=== PATIENT | female | born 1960 | race Two or more races ===

== ENCOUNTER 2018-05-29 15:34 | Emergency (ER) | payer MEDICAID ==
[~2018-05-29] VITALS: Ht 162.6 cm; Wt 108.9 kg
[2018-05-29] MEDS ORDERED: ALBUTEROL SULF 2.5 MG/0.5ML(0.5%) NEB SOLN HHN ONE (16:00)
[2018-05-29] MEDS ORDERED: IPRATROPIUM BROM 0.5 MG/2.5ML INH SOL HHN ONE (16:00)
[2018-05-29] MEDS ORDERED: methylPREDNISolone SOD SUCC 125 MG/2 ML VL IV ONE (16:00)
[2018-05-29 16:44] LABS: Basophils # (auto) 0 uL; Basophils % (auto) 0.8 % (0.0-2.0); Eosinophils # (auto) 0 uL; Eosinophils % (auto) 0.5 % (0.0-7.0); Hematocrit 43.6 % (36.0-46.0); Hemoglobin 14.7 g/dL (12.2-16.2); Lymphocytes # (auto) 0.2 uL; Lymphocytes % (auto) 5.1 % (10.0-50.0); Mean Corpuscular Hemoglobin 30.1 pg (28.0-32.0); Mean Corpuscular Hgb Conc. 33.8 g/dL (32.0-36.0); Mean Corpuscular Volume 89.1 fL (80.0-100.0); Monocytes # (auto) 0.6 uL; Monocytes % (auto) 13.8 % (0.0-12.0); Neutrophils # (auto) 3.5 uL; Neutrophils % (auto) 79.8 % (37.0-80.0); Platelet Count (auto) 147 10^3/uL (140-450); Red Blood Cells 4.89 10^6/uL (4.0-5.20); Red Cell Distribution Width 13.5 % (11.8-14.3); White Blood Cell 4.4 10^3/uL (4.4-10.8)
[2018-05-29 16:52] LABS: Alanine Aminotransferase 43 U/L (13-56); Albumin 3.9 g/dL (3.4-5.0); Anion Gap 7 (5-15); Aspartate Aminotransferase 32 U/L (15-37); BUN/Creatinine Ratio 14.1; Blood Urea Nitrogen 9 mg/dL (7-18); Carbon Dioxide 24 mmol/L (21-32); Chloride 103 mmol/L (98-107); GFR African American > 60 mL/min; GFR Non-African American > 60 mL/min; Glucose 190 mg/dL (74-106); Potassium 3.8 mmol/L (3.5-5.1); Sodium 134 mmol/L (136-145)
[2018-05-29 16:55] LABS: Alkaline Phosphatase 135 U/L (45-117); Bilirubin, Total 0.9 mg/dL (0.2-1.0); Total Protein 7.8 g/dL (6.4-8.2)
[2018-05-29 22:48] VITALS: BP 149/69
== END 2018-05-29 23:19 | disposition short-term general hospital (02) ==
LOC: EDBD 15:34 → ER 15:38
DX: R06.03 Acute respiratory distress (principal); R50.9 Fever, unspecified; R42 Dizziness and giddiness; R51 Headache; J45.909 Unspecified asthma, uncomplicated
CPT/HCPCS: 36415; 71046; 80053; 83605; 83735; 83880; 84484; 85025; 87040; 93005; 94640; 94761; 96374; 99285; J2930; J7611; J7644

== ENCOUNTER 2024-02-14 18:27 | Emergency (ER) | payer OTHER, MEDICAID ==
[~2024-02-14] VITALS: Ht 165.1 cm; Wt 105.0 kg
[2024-02-14 21:07] LABS: Basophils # (auto) 0 10 ^3/uL (0-0.2); Basophils % (auto) 0.2 % (0.0-2.0); Eosinophils # (auto) 0 10 ^3/uL (0-0.8); Hemoglobin 14.5 g/dL (12.2-16.2); Lymphocytes # (auto) 0.5 10 ^3/uL (0.4-5.4); Lymphocytes % (auto) 3.4 % (10.0-50.0); Mean Corpuscular Hemoglobin 30.5 pg (28.0-32.0); Mean Corpuscular Hgb Conc. 32.9 g/dL (32.0-36.0); Mean Corpuscular Volume 92.5 fL (80.0-100.0); Monocytes # (auto) 0.9 10 ^3/uL (0-1.3); Monocytes % (auto) 6.2 % (0.0-12.0); Neutrophils # (auto) 12.9 10 ^3/uL (1.6-8.6); Neutrophils % (auto) 90.2 % (37.0-80.0); Platelet Count (auto) 198 10^3/uL (140-450); Red Blood Cells 4.75 10^6/uL (4.0-5.20); Red Cell Distribution Width 14.7 % (11.8-14.3); White Blood Cell 14.4 10^3/uL (4.4-10.8)
[2024-02-14 21:28] LABS: Alanine Aminotransferase 34 U/L (7-40); Albumin 4.4 g/dL (3.2-4.8); Alkaline Phosphatase 125 U/L (46-116); Anion Gap 8 (5-15); Aspartate Aminotransferase 26 U/L (13-40); BUN/Creatinine Ratio 7.8 (10.0-20.0); Blood Urea Nitrogen 9 mg/dL (9-23); Calcium 10.9 mg/dL (8.7-10.4); Carbon Dioxide 25 mmol/L (20-31); Chloride 101 mmol/L (98-107); Glucose 266 mg/dL (74-106); Lipase 30 U/L (12-53); Magnesium 1.8 mg/dL (1.6-2.6); Potassium 3.3 mmol/L (3.5-5.1); Sodium 134 mmol/L (136-145)
[2024-02-14 21:29] LABS: Bilirubin, Total 1.3 mg/dL (0.2-1.0); Total Protein 7.1 g/dL (5.7-8.2)
[2024-02-14] MEDS: SODIUM CHLORIDE 0.9% 1,000 ML IV ONE (22:52)
[2024-02-14] MEDS: KETOROLAC TROMETH 60MG/2ML VIAL IM ONE (22:53)
[2024-02-14] MEDS: cefTRIAXone W LIDOCAINE 1 GM IM IM ONE (23:45)
[2024-02-15 00:09] LABS: Urine Bacteria FEW /hpf (None Seen); Urine Blood 1+ /uL (Negative); Urine Clarity Ex.Turbid (Clear); Urine Color Yellow (Yellow); Urine Protein, UAD 2+ (Negative); Urine Specific Gravity 1.008 (1.001-1.035); Urine Urobilinogen Normal (Negative); Urine WBC 2072 /hpf (0 - 5); Urine WBC Clumps PRESENT /hpf (None Seen)
[2024-02-15] MEDS: POTASSIUM EFFERVESENT TAB 25 MEQ PO ONE (00:13)
[2024-02-15] MEDS: SODIUM CHLORIDE 0.9% 1,000 ML IV ONE (00:14)
[2024-02-15] MEDS: cefTRIAXone W LIDOCAINE 1 GM IM IM ONE (02:00)
[2024-02-15] MEDS ORDERED: CEPH250C PO (02:57)
[2024-02-15] MEDS ORDERED: AZITTAB2 PO (02:57)
[2024-02-15] MEDS: cefTRIAXone SOD 1,000 MG VL ONE (03:30)
[2024-02-15 04:17] VITALS: BP 88/64; PULSE 62; RESP 18; TEMP 98.3; O2SAT 95
[2024-02-16] MEDS ORDERED: CICL160A2 IN (14:03)
[2024-02-16] MEDS ORDERED: BUSP10TA31 PO (14:03)
[2024-02-16] MEDS ORDERED: VENL75CA78 PO (14:03)
[2024-02-16] MEDS ORDERED: HYDR-4072 PO (14:03)
[2024-02-16] MEDS ORDERED: LISI-283 PO (14:03)
[2024-02-16] MEDS ORDERED: AMLO1TAB23 PO (14:03)
[2024-02-16] MEDS ORDERED: INSLISPI SC ×2 (14:03)
[2024-02-16] MEDS ORDERED: ATOR20TA PO (14:03)
[2024-02-16] MEDS ORDERED: SEMA1INJ2 SC (14:03)
[2024-02-16] MEDS ORDERED: GABA300T4 PO (14:03)
[2024-02-16] MEDS ORDERED: TOPI100T68 PO (14:03)
[2024-02-16] MEDS ORDERED: AZEL0.1S (14:03)
[2024-02-16] MEDS ORDERED: POTA-36 PO (14:03)
== END 2024-02-15 04:18 | disposition home or self-care (01) ==
LOC: ER 18:27 → EDBD 18:27 → ER 02-15 04:18
DX: J40 Bronchitis, not specified as acute or chronic (principal); N39.0 Urinary tract infection, site not specified; B34.9 Viral infection, unspecified; E11.9 Type 2 diabetes mellitus without complications; I10 Essential (primary) hypertension; Z88.8 Allergy status to other drugs, medicaments and biological substances
CPT/HCPCS: 36415; 71046; 80053; 81001; 83690; 83735; 84484; 85025; 93005; 96360; 96361; 96372; 99285; J0696; J1885; J7030

== ENCOUNTER 2024-02-15 09:18 | Inpatient (IN) | payer OTHER, MEDICAID ==
[~2024-02-15] VITALS: Ht 172.7 cm; Wt 122.7 kg
[~2024-02-15 09:18] MED LIST: AZITTAB2 PO; CEPH250C PO
[2024-02-15] MEDS: ACETAMINOPHEN 650 MG RECT SUPP PR ONE (10:39)
[2024-02-15 10:56] VITALS: PULSE 134; RESP 24; O2SAT 92
[2024-02-15 11:57] LABS: Basophils # (auto) 0 10 ^3/uL (0-0.2); Eosinophils # (auto) 0 10 ^3/uL (0-0.8); Eosinophils % (auto) 0.2 % (0.0-7.0); Hematocrit 38.2 % (36.0-46.0); Hemoglobin 12.9 g/dL (12.2-16.2); Lymphocytes # (auto) 0.2 10 ^3/uL (0.4-5.4); Lymphocytes % (auto) 5.7 % (10.0-50.0); Mean Corpuscular Hemoglobin 31.6 pg (28.0-32.0); Mean Corpuscular Hgb Conc. 33.9 g/dL (32.0-36.0); Mean Corpuscular Volume 93.2 fL (80.0-100.0); Monocytes # (auto) 0 10 ^3/uL (0-1.3); Monocytes % (auto) 1.3 % (0.0-12.0); Neutrophils # (auto) 3.3 10 ^3/uL (1.6-8.6); Neutrophils % (auto) 92.8 % (37.0-80.0); Nucleated Red Blood Cells % 0.1 %; Platelet Count (auto) 113 10^3/uL (140-450); Red Blood Cells 4.09 10^6/uL (4.0-5.20); Red Cell Distribution Width 14.6 % (11.8-14.3); White Blood Cell 3.6 10^3/uL (4.4-10.8)
[2024-02-15 12:22] LABS: Alanine Aminotransferase 33 U/L (7-40); Albumin 3.6 g/dL (3.2-4.8); Alkaline Phosphatase 153 U/L (46-116); Anion Gap 6 (5-15); Aspartate Aminotransferase 35 U/L (13-40); BUN/Creatinine Ratio 10.2 (10.0-20.0); Bilirubin, Total 0.8 mg/dL (0.2-1.0); Blood Urea Nitrogen 12 mg/dL (9-23); Carbon Dioxide 25 mmol/L (20-31); Chloride 102 mmol/L (98-107); Glucose 183 mg/dL (74-106); Potassium 3.5 mmol/L (3.5-5.1); Sodium 133 mmol/L (136-145); Total Protein 5.9 g/dL (5.7-8.2)
[2024-02-15 12:41] LABS: Lactic Acid w/Reflex 2.7 mmol/L (0.4-2.0)
[2024-02-15] MEDS ORDERED: ACETAMINOPHEN IV 1000 MG/100ML (10MG/ML) IV PRN (13:00)
[2024-02-15] MEDS: cefTRIAXone 1GM/50ML D5W 50 ML IV ONE (13:17)
[2024-02-15] MEDS: AZITHROMYCIN 250 MG TAB PO ONE (13:55)
[2024-02-15] MEDS: methylPREDNISolone SOD SUCC 125 MG/2 ML VL IV ONE (13:58)
[2024-02-15 14:01] LABS: COVID19 ANTIGEN SOFIA FIA NEGATIVE (NEGATIVE); Rapid Influenza A Negative (Negative); Rapid Influenza B Negative (Negative)
[2024-02-15] MEDS: ACETAMINOPHEN 325 MG TAB PO ONE (14:22)
[2024-02-15] MEDS: SODIUM CHLORIDE 0.9% 1,000 ML IV ONE ×3 (14:45→16:37)
[2024-02-15] MEDS ORDERED: NITROGLYCERIN 0.4 MG SL TAB SL PRN (17:30)
[2024-02-15] MEDS: ALBUTEROL SULF 2.5 MG/0.5ML(0.5%) NEB SOLN NEB ONE (17:30)
[2024-02-15] MEDS: NOREPINEPHRINE 8 MG/250ML KIT 250 ML IV ONE (17:42)
[2024-02-15] MEDS: NOREPINEPHRINE 8 MG/250ML KIT 250 ML IV SCH (17:50)
[2024-02-15 18:10] VITALS: PULSE 74; RESP 20; O2SAT 94
[2024-02-15 18:11] LABS: Base Excess -3.1 mmol/L (-2.0-3.0)
[2024-02-15] MEDS: ALBUTEROL SULF 2.5 MG/0.5ML(0.5%) NEB SOLN NEB PRN (18:18)
[2024-02-15] MEDS: IPRATROPIUM BROM 0.5 MG/2.5ML INH SOL NEB ONE (18:18)
[2024-02-15 18:21] VITALS: PULSE 71; RESP 20; O2SAT 94; O2SAT 98
[2024-02-15 18:24] VITALS: BP 89/48; PULSE 74; TEMP 103.4; O2SAT 94
[2024-02-15] MEDS: levoFLOXacin 500MG 100 ML IV ONE (18:43)
[2024-02-15] MEDS: SODIUM CHLORIDE 0.9% 1,000 ML IV SCH (18:43)
[2024-02-15] MEDS: ENOXAPARIN SOD 40 MG/0.4 ML SYRINGE SC SCH (18:48)
[2024-02-15] MEDS: PANTOPRAZOLE 40 MG/10 ML VIAL INJ IV ONE (18:48)
[2024-02-15 19:30] VITALS: PULSE 77; RESP 20; O2SAT 94
[2024-02-15] MEDS ORDERED: IPRATROPIUM BROM 0.5 MG/2.5ML INH SOL NEB PRN (22:00)
[2024-02-15] MEDS: methylPREDNISolone SOD SUCC 125 MG/2 ML VL IV SCH (22:52)
[2024-02-15] MEDS: MORPHINE SULFATE INJ 2 MG/ml SYRG IV PRN (22:53)
[2024-02-15 23:36] LABS: Urine Bacteria None Seen /hpf (None Seen)
[2024-02-15 23:58] LABS: Urine Blood Negative /uL (Negative); Urine Clarity Clear (Clear); Urine Color Yellow (Yellow); Urine Protein, UAD TRACE (Negative); Urine Specific Gravity 1.008 (1.001-1.035); Urine Urobilinogen Normal (Negative); Urine WBC 71 /hpf (0 - 5)
[2024-02-16] VITALS (48 sets, daily range): BP systolic 91–127; BP diastolic 34–67; PULSE 50–100; RESP 12–28; TEMP 98.2–98.6; O2SAT 93–99
[2024-02-16] MEDS ORDERED: DEXTROSE (50%) 50ML SYRG IV PRN (04:30)
[2024-02-16 06:41] LABS: Basophils # (auto) 0 10 ^3/uL (0-0.2); Eosinophils # (auto) 0 10 ^3/uL (0-0.8); Hematocrit 37.7 % (36.0-46.0); Hemoglobin 12.6 g/dL (12.2-16.2); Lymphocytes # (auto) 0.7 10 ^3/uL (0.4-5.4); Lymphocytes % (auto) 4.1 % (10.0-50.0); Mean Corpuscular Hemoglobin 31.4 pg (28.0-32.0); Mean Corpuscular Hgb Conc. 33.3 g/dL (32.0-36.0); Mean Corpuscular Volume 94.1 fL (80.0-100.0); Monocytes # (auto) 0.6 10 ^3/uL (0-1.3); Monocytes % (auto) 3.4 % (0.0-12.0); Neutrophils # (auto) 15.3 10 ^3/uL (1.6-8.6); Neutrophils % (auto) 92.5 % (37.0-80.0); Nucleated Red Blood Cells % 0.1 %; Platelet Count (auto) 132 10^3/uL (140-450); Red Blood Cells 4.01 10^6/uL (4.0-5.20); Red Cell Distribution Width 14.7 % (11.8-14.3); White Blood Cell 16.5 10^3/uL (4.4-10.8)
[2024-02-16 06:57] LABS: Alanine Aminotransferase 59 U/L (7-40); Albumin 3.6 g/dL (3.2-4.8); Alkaline Phosphatase 118 U/L (46-116); Anion Gap 8 (5-15); Aspartate Aminotransferase 52 U/L (13-40); BUN/Creatinine Ratio 13.6 (10.0-20.0); Bilirubin, Total 0.6 mg/dL (0.2-1.0); Blood Urea Nitrogen 12 mg/dL (9-23); Calcium 9.6 mg/dL (8.7-10.4); Carbon Dioxide 20 mmol/L (20-31); Chloride 107 mmol/L (98-107); Glucose 389 mg/dL (74-106); Potassium 4.1 mmol/L (3.5-5.1); Sodium 135 mmol/L (136-145)
[2024-02-16] MEDS: ONDANSETRON HCL 4 MG/2 ML VIAL IV PRN (07:48)
[2024-02-16] MEDS: ACCU-CHEK COMFORT CURVE STRIP VI SCH (08:02)
[2024-02-16] MEDS: InsuLIN REG 1unit/0.01ml Soln (100units/ml) SC SCH (08:02)
[2024-02-16] MEDS ORDERED: cefTRIAXone 1GM/50ML D5W 50 ML IV SCH (09:00)
[2024-02-16] MEDS: PANTOPRAZOLE 40 MG/10 ML VIAL INJ IV SCH (09:44)
[2024-02-16] MEDS ORDERED: INSLISPI SC ×2 (14:03)
[2024-02-16] MEDS ORDERED: VENL75CA78 PO (14:03)
[2024-02-16] MEDS ORDERED: LISI-283 PO (14:03)
[2024-02-16] MEDS ORDERED: HYDR-4072 PO (14:03)
[2024-02-16] MEDS ORDERED: AMLO1TAB23 PO (14:03)
[2024-02-16] MEDS ORDERED: BUSP10TA31 PO (14:03)
[2024-02-16] MEDS ORDERED: SEMA1INJ2 SC (14:03)
[2024-02-16] MEDS ORDERED: TOPI100T68 PO (14:03)
[2024-02-16] MEDS ORDERED: ATOR20TA PO (14:03)
[2024-02-16] MEDS ORDERED: CICL160A2 IN (14:03)
[2024-02-16] MEDS ORDERED: POTA-36 PO (14:03)
[2024-02-16] MEDS ORDERED: GABA300T4 PO (14:03)
[2024-02-16] MEDS ORDERED: AZEL0.1S (14:03)
[2024-02-16] MEDS: levoFLOXacin 500MG 100 ML IV SCH (16:54)
[2024-02-16] MEDS: DOCUSATE SOD 100 MG CAP PO PRN (21:52)
[2024-02-16] MEDS: ALBUTEROL SULF 2.5 MG/0.5ML(0.5%) NEB SOLN NEB SCH (23:13)
[2024-02-16] MEDS: IPRATROPIUM BROM 0.5 MG/2.5ML INH SOL NEB SCH (23:14)
[2024-02-17] VITALS (32 sets, daily range): BP systolic 90–151; BP diastolic 39–76; PULSE 51–89; RESP 13–32; TEMP 36.8; O2SAT 89–97
[2024-02-17] MEDS: PIPERACILLIN-TAZOB 3.375GM 100 ML IV SCH ×2 (00:06→14:08)
[2024-02-17 05:08] LABS: Basophils # (auto) 0 10 ^3/uL (0-0.2); Basophils % (auto) 0.1 % (0.0-2.0); Eosinophils # (auto) 0 10 ^3/uL (0-0.8); Hematocrit 35.1 % (36.0-46.0); Hemoglobin 11.9 g/dL (12.2-16.2); Lymphocytes # (auto) 0.5 10 ^3/uL (0.4-5.4); Lymphocytes % (auto) 5.9 % (10.0-50.0); Mean Corpuscular Hemoglobin 31.3 pg (28.0-32.0); Mean Corpuscular Hgb Conc. 33.8 g/dL (32.0-36.0); Mean Corpuscular Volume 92.3 fL (80.0-100.0); Monocytes # (auto) 0.4 10 ^3/uL (0-1.3); Monocytes % (auto) 4.7 % (0.0-12.0); Neutrophils # (auto) 7.2 10 ^3/uL (1.6-8.6); Neutrophils % (auto) 89.3 % (37.0-80.0); Nucleated Red Blood Cells % 0.2 %; Platelet Count (auto) 102 10^3/uL (140-450); Red Cell Distribution Width 14.2 % (11.8-14.3)
[2024-02-17 05:35] LABS: Alanine Aminotransferase 45 U/L (7-40); Alkaline Phosphatase 95 U/L (46-116); Anion Gap 5 (5-15); Aspartate Aminotransferase 21 U/L (13-40); BUN/Creatinine Ratio 18.1 (10.0-20.0); Blood Urea Nitrogen 13 mg/dL (9-23); Calcium 10.1 mg/dL (8.7-10.4); Carbon Dioxide 23 mmol/L (20-31); Chloride 109 mmol/L (98-107); Glucose 265 mg/dL (74-106); Potassium 4.2 mmol/L (3.5-5.1); Sodium 137 mmol/L (136-145)
[2024-02-17 05:36] LABS: Albumin 3.4 g/dL (3.2-4.8)
[2024-02-17 05:37] LABS: Bilirubin, Total 0.3 mg/dL (0.2-1.0); Total Protein 5.6 g/dL (5.7-8.2)
[2024-02-17] MEDS: AZITHROMYCIN 500MG/ 250ML 250 ML IV SCH (10:29)
== END 2024-02-17 19:42 | disposition short-term general hospital (02) | DRG 871 ==
LOC: ER 09:18 → EDUNIT# 09:18 → EDBD 09:18 → TELE 17:37 → DOU IN ICU 02-16 08:25 → ICU CENTRL 02-16 10:01
PROVIDERS: ADMIT Nurse Practitioner Family; ATTEND Student in an Organized Health Care Education/Training Program
DX: A41.9 Sepsis, unspecified organism (principal); J96.01 Acute respiratory failure with hypoxia; R65.21 Severe sepsis with septic shock; N17.0 Acute kidney failure with tubular necrosis; J96.20 Acute and chronic respiratory failure, unspecified whether with hypoxia or hypercapnia; J44.1 Chronic obstructive pulmonary disease with (acute) exacerbation; J45.901 Unspecified asthma with (acute) exacerbation; Z68.41 Body mass index [BMI] 40.0-44.9, adult; D84.9 Immunodeficiency, unspecified; N13.6 Pyonephrosis; I50.9 Heart failure, unspecified; I11.0 Hypertensive heart disease with heart failure; E11.65 Type 2 diabetes mellitus with hyperglycemia; E66.01 Morbid (severe) obesity due to excess calories; J98.4 Other disorders of lung; Z20.822 Contact with and (suspected) exposure to COVID-19
CPT/HCPCS: 36415; 36600; 71045; 74176; 80053; 81001; 82805; 82962; 83036; 83605; 83735; 83880; 85025; 87040; 87081; 87086; 87426; 87804; 94640; 99291; G0378; J1815; J1956; J2405; J2470; J2543